=== PATIENT | male | born 1995 | race Caucasian/White ===

== ENCOUNTER 2018-11-30 07:47 | Emergency (ER) | payer OTHER ==
[2018-11-30 08:01] VITALS: BP 142/69; PULSE 96; TEMP 98.8; BMI 31.9
[2018-11-30] MEDS ORDERED: IBUPROFEN 400 MG TABLET (FP) PO ONE ×2 (08:21→08:27)
--- NOTE | 2018-11-30 08:38 | PDOC ---
History of Present Illness - General Chief Complaint: Sore Throat Stated Complaint: SORETHROAT SYMPTOMS Time Seen by Provider: 11/30/18 08:10 History Source: Patient Exam Limitations: No Limitations Past History - Past Medical History Allergies/Adverse Reactions: Allergies Allergy/AdvReac Type Severity Reaction Status Date / Time No Known Allergies Allergy Verified 11/30/18 08:00 Home Medications: Ambulatory Orders Valacyclovir HCl [Valtrex] 1,000 mg PO TID #15 tablet 11/30/18 COPD: No - Suicide/Smoking/Psychosocial Hx Smoking History: Never smoked *Physical Exam - Vital Signs Last Vital Signs Temp Pulse Resp BP Pulse Ox 98.8 F 96 H 18 142/69 97 11/30/18 07:59 11/30/18 07:59 11/30/18 07:59 11/30/18 07:59 11/30/18 07:59 - Physical Exam General Appearance: No: Apparent Distress HEENT: positive: Pharyngeal Erythema. negative: Muffled/Hoarse voice, Tonsillar Exudate, Nasal Congestion, Rhinorrhea, Sinus Tenderness Respiratory/Chest: positive: Lungs Clear, Normal Breath Sounds. negative: Respiratory Distress Cardiovascular: positive: Regular Rhythm, Regular Rate, S1, S2. negative: Murmur Gastrointestinal/Abdominal: positive: Normal Bowel Sounds, Soft. negative: Tender, Distended, Guarding, Rebound Integumentary: positive: Normal Color, Rash (noted along face, chest, abdomen, back, BUE - appears with red macules, areas of vesicular lesions, dewdrop on gus petal appearance) Neurologic: positive: Alert, Normal Mood/Affect Moderate Sedation - Procedure Monitoring Vital Signs: Procedure Monitoring Vital Signs Temperature 98.8 F 11/30/18 07:59 Pulse Rate 96 H 11/30/18 07:59 Respiratory Rate 18 11/30/18 07:59 Blood Pressure 142/69 11/30/18 07:59 O2 Sat by Pulse Oximetry (%) 97 11/30/18 07:59 ED Treatment Course - Medications Given in the ED: ED Medications Discontinued Medications Generic Name Dose Route Start Last Admin Trade Name Freq PRN Reason Stop Dose Admin Ibuprofen 800 mg 11/30/18 08:21 11/30/18 08:28 Motrin - PO 11/30/18 08:22 800 mg ONCE ONE Administration Medical Decision Making - Medical Decision Making 23 y/o M with no sig pmh presents with subjective fever, sore throat, body aches x 4 days. Denies taking any antipyretics today. Denies cough, rhinorrhea, congestion, sob, cp, abd pain, n/v/d. Denies sick contacts. Also mentions rash x 2 days - rash along body, BUE and trunk. States rash is not itchy. Did not get chickenpox vaccine as well Patient afebrile here R/O strep Plan: Rapid strep, Motrin Rash - appears as chickenpox - will treat 11/30/18 08:33 Rapid strep negative Likely viral pharyngitis 11/30/18 08:48 *DC/Admit/Observation/Transfer Diagnosis at time of Disposition: Viral pharyngitis Chicken pox Qualifiers: Varicella complications: without complication Qualified Code(s): B01.9 - Varicella without complication - Discharge Dispostion Disposition: HOME Condition at time of disposition: Stable Decision to Admit order: No - Prescriptions Prescriptions: Valacyclovir HCl [Valtrex] 1,000 mg PO TID #15 tablet - Referrals Referrals: Philippe Grace MD [Staff Physician] - 2 Days - Patient Instructions Printed Discharge Instructions: DI for Viral Pharyngitis, DI for Chickenpox- Adult Additional Instructions: Thank you for choosing [facility]. It was a pleasure taking care of you. You were tested negative for rapid strep You were noted to have possible chickenpox, for which you were started on medication Please note that this condition is highly contagious - it can spread by touch or inhalation of the aerosols from the fluid of the skin lesions. The condition is contagious until the lesions crust over You were referred to primary care clinic for follow-up Return to the Emergency Department if your symptoms worsen or persist or have other concerning symptoms. Sanjeev por elegir el [facility], [place]. Fue un placer cuidar de ti. Le hicieron edmundo prueba negativa de estreptococo Se observ que sarwat posible varicela, por lo que comenz a brenda medicamentos Tenga en cuenta que esta condicin es altamente contagiosa: se puede propagar al tocar o inhalar los aerosoles del lquido de las lesiones de la piel. La condicin es contagiosa hasta que las lesiones ty edmundo costra Fue referido a edmundo clnica de atencin primaria para garcía seguimiento. Regrese al Departamento de Emergencias si rachid sntomas empeoran o persisten o si tiene otros sntomas relacionados. - Post Discharge Activity
== END 2018-11-30 09:23 | disposition home or self-care (01) ==
LOC: JERFT 07:47
DX: J02.9 Acute pharyngitis, unspecified (principal); B97.89 Other viral agents as the cause of diseases classified elsewhere; B01.9 Varicella without complication
CPT/HCPCS: 87070; 87880; 99281-25

== ENCOUNTER 2020-12-17 18:15 | Emergency (ER) | payer OTHER ==
[2020-12-17 18:42] VITALS: BP 142/75; PULSE 68; TEMP 98.6; BMI 30.4
== END 2020-12-17 20:53 | disposition home or self-care (01) ==
LOC: JER 18:15 → JERFT 18:15
DX: H72.92 Unspecified perforation of tympanic membrane, left ear (principal)
CPT/HCPCS: 99282-25